=== PATIENT | female | born 1965 | race Caucasian/White ===

== ENCOUNTER 2023-11-08 09:41 | Emergency (ER) | payer OTHER, SELFPAY ==
[2023-11-08 09:54] VITALS: BP 144/97; BMI 29.3
[2023-11-08 10:00] VITALS: BP 143/79
[2023-11-08 10:17] LABS: % Basophils 0.8 % (0-2); % Eosinophils 0.2 % (0-6); % Immature Granulocytes 0.4 % (0-0.5); % Lymphocytes 37.3 % (20.5-51.1); % Monocytes 6.6 % (1.7-9.3); % Neutrophils 54.7 % (42.2-75.2); Absolute Monocytes 0.4 10^3/uL (0.1-0.6); Absolute Neutrophils 2.9 10^3/uL (1.4-6.5); Hematocrit 40.6 % (37.0-47.0); Hemoglobin 13.9 g/dL (12.0-16.0); Mean Corp Hgb Conc. 34.2 g/dL (33.0-37.0); Mean Corpuscular Hgb 31.6 pg (27.0-31.0); Mean Corpuscular Volume 92.3 fL (81.0-99.0); Mean Platelet Volume 11.4 fL (7.4-10.4); Nucleated Red Blood Cells % 0 %; Platelet Count 301 10^3/uL (130-400); Red Cell Dist. Width 11.9 % (11.5-14.5); White Blood Cell Count 5.3 10^3/uL (4.8-10.8)
--- NOTE | 2023-11-08 10:30 | ED.GENMED ---
History of Present Illness
General
Chief Complaint: Chest Pain
Source: patient and spouse
Exam Limitations: none
Time Seen by Provider: 11/08/23 09:52
Nursing documentation reviewed up to this point in time: agreed with
Travel History
Have you had any contact with someone who has COVID-19?: No
Do you have any symptoms of coronavirus? Fever > 100 degrees, chills, cough, shortness of breath, sore throat, loss of taste or smell, muscle aches, or headache?: No
History of Present Illness
History of Present Illness:
58-year-old female with a past medical history of asthma, IBS, anxiety/panic attacks who presents to the emergency room with her for evaluation of chest pain, shortness of breath, dizziness and paresthesias. Patient reports onset of
symptoms this morning and they have been constant since that time. She reports this started while she was lying in bed. According to her they started in the context of receiving disparaging text messages from her younger brother who is an
alcoholic and is actively drinking. Patient apparently has also been very anxious because a very close friend is dying of cancer. Patient says that she tried laying down, drinking water, but could not get symptoms to go away. She describes a
tight sensation in her chest associated with shortness of breath. She says she has paresthesias in her arms and her legs. She says she feels very dizzy. She was in her normal state of health prior to onset has not had any cough, fevers, chills.
No leg pain or swelling. No GI issues. She has had episodes like this before from panic attacks but never quite this intense.
Review of Systems
Review of Systems
All Other Systems: ROS reviewed and negative except as documented in HPI and ROS
Constitutional: Denies fever or chills
EENT: Denies sore throat or runny nose
Respiratory: Reports trouble breathing; Denies cough
Cardiac: Reports chest pain; Denies diaphoresis or palpitations
ABD/GI: Denies abdominal pain, nausea or vomiting
: Denies flank pain
Musculoskeletal: Denies edema, neck pain or back pain
Neurological: Reports dizzy; Denies headache
Phy Exam
Physical Exam
Physical Exam:
General: Awake, alert, oriented x3; tearful and extremely anxious, hyperventilating
Head: Normocephalic, atraumatic
Eyes: Conjunctiva normal, pupils equal round and reactive to light bilaterally
Throat: Airway intact, handling secretions
Neck: Trachea midline, no JVD
Lungs: Clear to auscultation bilaterally, no wheezing, rales, rhonchi
Heart: Regular rate and rhythm, no murmurs, gallops, or rubs
Abd: Soft, non distended, nontender
Neuro: No gross deficits
Skin: no rash
Extremities: No edema in extremities, equal pulses in all extremities
Scores
Heart Failure Risk
Heart Failure Risk Score: Not Applicable
Heart Score for Chest Pain Patients
STEMI patient?: Not applicable
Withdrawal Assessment of Alcohol
Withdrawal Assessment Completed?: Not applicable
Course
Orders/Labs/Results
Orders:
Orders
11/08/23 09:42
Electrocardiogram (*1) Urgent
Reason for Study: Chest Pain
EKG- Treatment ONCE
11/08/23 09:54
CR Chest - 2 Views Urgent
Comment:
Reason For Exam: chest pain, sob
11/08/23 09:59
Comprehensive Metabolic Panel Urgent
D-Dimer Urgent
11/08/23 10:01
Complete Blood Count/With Diff Urgent
Troponin I Urgent
11/08/23 10:29
Lorazepam [Ativan] 0.5 mg IV NOW STA
11/08/23 12:13
Electrocardiogram (*1) Urgent
Reason for Study: Tachycardia
EKG- Treatment ONCE
Abnormal Lab Results
11/08/23 11/08/23
09:59 10:01
MCH 31.6 H pg
(27.0-31.0)
MPV 11.4 H fL
(7.4-10.4)
Carbon Dioxide 17 L mmol/L
(22-30)
BUN 28 H mg/dl
(7-17)
Glucose 148 H mg/dl
(70-99)
11/08/23 10:01
11/08/23 09:59
Vital Signs
Initial and Last Documented VS:
Initial Vital Signs
Temp Pulse Resp Pulse Ox
36.4 C 115 24 100
11/08/23 09:45 11/08/23 09:45 11/08/23 09:45 11/08/23 09:45
Last Documented Vital Signs
Temp Pulse Resp BP Pulse Ox
36.4 C 80 19 143/79 100
11/08/23 09:45 11/08/23 11:15 11/08/23 11:15 11/08/23 10:00 11/08/23 11:15
MDM/Problems Addressed
Differential Diagnosis Includes:
Panic attack/acute anxiety, PE, ACS, pneumothorax
MDM/Problems Addressed:
58-year-old female presents for evaluation of chest pain, shortness of breath, dizziness and paresthesias similar to prior panic attacks but more intense than usual�symptoms started in the context of baseline anxiety from illness and a friend and
disparaging text messages this morning from her brother. She was tachycardic and hypertensive in triage but her vital signs have improved by my assessment�she is hyperventilating and so she does have tachypnea but her pulse ox is 100% on room air.
Physical exam as above�notably has no wheezing, clear lungs bilaterally. Her EKG shows no STEMI. Will place an IV check labs including a CBC and a CMP, troponin, D-dimer. Will check a chest x-ray. Will treat with Ativan. Will reassess after the
above. Clinically, patient is having a panic attack.
Labs reviewed: CBC unremarkable, CMP no clinically significant abnormalities. Troponin undetectable and with consistent symptoms for hours suspicion to rule out acute [place]. D-dimer negative. Chest x-ray shows no acute disease. On reassessment
after Ativan patient is feeling much better no longer has any chest pain or shortness of breath and is breathing normally. Vital signs normal. Suspect that this was a panic attack. I think patient is clinically stable for discharge�patient and
feel comfortable with this plan. She will follow-up with her doctor later this week for after this visit to the ER. We spoke about return precautions all questions were answered.
Chronic conditions affecting care:
Anxiety
Acute Exacerbation and/or Progression of Chronic Illness: HTN
*Radiology
Radiology exam reviewed: preliminary read by ED provider and radiology read reviewed
*Pulse Oximetry
Patient hypoxic: no
*EKG
Interpreted by ED Provider?: Yes
Heart Rate: 113
Rate: normal
Rhythm: sinus
[place]: normal axis
Interval: normal interval
QRS Pattern: normal QRS
Ischemia: non-specific ST changes
*Critical Care Note
Total Time (30-74mins, 75-104mins- exclusive of procedures): Not Applicable
Data Reviewed
Review of Other/Old Records Reveals: Labs and Records
Source: patient, records and spouse
ED Attending Note
-
Portions of this chart may have been created with voice recognition software.� Occasional wrong word or��sound alike� substitutions may have occurred due to the inherent limitations of voice recognition software.
Discharge Plan
Departure
Patient Disposition: Home (Routine Discharge)
Date of Disposition: 11/08/23
Time of Disposition: 12:16
Patient with high blood pressure during this ER visit?: Yes
Discharge Problem:
Panic attack
Instructions: Panic Attack ED
Prescriptions:
New
lorazepam 0.5 mg tablet
0.5 mg PO DAILY PRN (Reason: anxiety) Qty: 5 0RF
No Action
Estefany
1 tab PO DAILY
multivitamin [Daily Multiple] 1 EACH tablet
1 ea PO DAILY
albuterol sulfate 1 PUFF HFA aerosol inhaler
2 puff inhalation PRN PRN (Reason: difficulty breathing)
vitamin E 400 UNIT capsule
3 tab PO DAILY
Biotin
5,000 mcg PO DAILY
Referrals:
Keely Cox MD [Family Provider] - Follow up in 2-3 days
Activity Restrictions/Additional Instructions:
Thank you for visiting the Emergency Department at [facility].
1. Please schedule a follow up appointment as directed. Call first thing tomorrow morning to make an appointment.
2. If indicated, please take your medications as instructed and indicated on discharge paperwork.
3. If any of your symptoms do not improve, or persist, or become more severe within 6-12 hours, please return to the emergency department for further care.
4. Please return to the emergency department if you develop a headache, neck pain/stiffness, fever greater than 100.4F, chest pain, shortness of breath, persistent nausea, vomiting, slurred speech, difficulty walking, numbness/tingling, weakness,
signs of infection or any other symptoms that are worrisome to you.
Please call [phone] if you have any questions.
Interventions
Interventions:
*Risk Screen - Suicide Last Done: 11/08/23 09:45
*General Assessment Last Done: 11/08/23 09:45
*Neglect/Abuse Screening Last Done: 11/08/23 09:45
ED- Fall Risk Assessment Last Done: 11/08/23 09:54
*ED COVID-19 Vaccine History Last Done: 11/08/23 09:53
ED- Cardiac Assessment Last Done: 11/08/23 09:54
ED- Neurological Assessment Last Done: 11/08/23 09:54
ED Swallowing Screen Last Done: 11/08/23 09:57
Discharge Date and Time
Print Language: [id number]
[2023-11-08] MEDS: ATIVAN 0.5 MG IV (10:33)
[2023-11-08 10:42] LABS: Troponin I < 0.012 ng/ml
[2023-11-08 10:42] LABS: Albumin 4.8 g/dl (3.5-5.0); Alkaline Phosphatase 79 U/L (38-126); Blood Urea Nitrogen 28 mg/dl (7-17); Carbon Dioxide 17 mmol/L (22-30); Chloride 103 mmol/L (98-107); Estimated Creatinine Clearance 74 ml/min; Glucose 148 mg/dl (70-99); Potassium 4.2 mmol/L (3.5-5.1); Sodium 136 mmol/L (135-145); Total Bilirubin 0.8 mg/dl (0.2-1.3); Total Protein 7.2 g/dl (6.3-8.2); eGFR > 60.00
[2023-11-08 11:03] LABS: D-Dimer 0.38 ug/mlFEU (0.00-0.50)
[2023-11-08 11:42] LABS: AST (SGOT) 26 U/L (14-36)
[2023-11-08 12:16] LABS: ALT (SGPT) 24 U/L (0-35)
== END 2023-11-08 12:47 | disposition home or self-care (01) ==
LOC: EMR 09:41
PROVIDERS: EMERGENCY PHYSICIAN Emergency Medicine; FAMILY PHYSICIAN Internal Medicine
DX: F41.0 Panic disorder [episodic paroxysmal anxiety] (principal); R03.0 Elevated blood-pressure reading, without diagnosis of hypertension
CPT/HCPCS: 99285; 96374; 71046; 80053; 84484; 85025; 85379; 93005